=== PATIENT | female | born 1995 | race Asian ===

== ENCOUNTER 2017-04-16 01:35 | Emergency (ER) | payer BC ==
[~2017-04-16] VITALS: Ht 162.6 cm; Wt 75.3 kg
[2017-04-16 01:42] VITALS: Ht 162.6 cm; Wt 75.3 kg
[2017-04-16 02:57] VITALS: BP 132/84
== END 2017-04-16 02:57 | disposition home or self-care (01) ==
LOC: ED 01:35
DX: S39.012A Strain of muscle, fascia and tendon of lower back, initial encounter (principal); X58.XXXA Exposure to other specified factors, initial encounter; Y93.89 Activity, other specified; Y92.89 Other specified places as the place of occurrence of the external cause; Y99.8 Other external cause status
CPT/HCPCS: J1885

== ENCOUNTER 2017-09-09 15:23 | Emergency (ER) | payer BC ==
[~2017-09-09] VITALS: Ht 162.6 cm; Wt 75.3 kg
[2017-09-09 15:39] VITALS: Ht 162.6 cm; Wt 75.3 kg
[2017-09-09 16:36] VITALS: BP 134/78
== END 2017-09-09 16:37 | disposition home or self-care (01) ==
LOC: ED 15:23
DX: M62.838 Other muscle spasm (principal); R51 Headache